=== PATIENT | female | born 1980 | race Caucasian/White ===

== ENCOUNTER → 2017-11-25 09:36 | Outpatient (CLI) | payer OTHER, SELFPAY ==
[2017-11-25 12:31] LABS: AST(SGOT) 11 U/L (15-37); Alanine Aminotransfer ALT/SGPT 20 U/L (13-56); Cholesterol 191 mg/dL (200); High Density Lipoprotein 33 mg/dL; Triglycerides 151 mg/dL; Very Low Density Lipoprotein 30 mg/dL (5-40)
[2017-11-25 13:06] LABS: Pregnancy, Serum, hCG Quali. NEGATIVE Negative (0-9 Nonpreg)
== END ==
PROVIDERS: Family Provider Nurse Practitioner Primary Care; PCP Nurse Practitioner Primary Care; Visit Provider Dermatology
DX: L70.0 Acne vulgaris (principal)
CPT/HCPCS: 36415; 80061; 84450; 84460; 84702; 84703

== ENCOUNTER → 2017-12-28 09:37 | Outpatient (CLI) | payer OTHER, SELFPAY ==
[2017-12-28 10:18] LABS: Internal QC Validated? YES +Cl - CLEAR BKGD; Pregnancy, Urine Negative Negative
== END ==
PROVIDERS: Family Provider Nurse Practitioner Primary Care; PCP Nurse Practitioner Primary Care; Visit Provider Dermatology
DX: Z79.899 Other long term (current) drug therapy (principal)
CPT/HCPCS: 81025

== ENCOUNTER → 2018-02-02 09:29 | Outpatient (CLI) | payer OTHER, SELFPAY ==
[2018-02-02 12:26] LABS: Internal QC Validated? YES +Cl - CLEAR BKGD; Pregnancy, Urine Negative Negative
== END ==
PROVIDERS: Family Provider Nurse Practitioner Primary Care; PCP Nurse Practitioner Primary Care; Visit Provider Dermatology
DX: L70.0 Acne vulgaris (principal); L56.4 Polymorphous light eruption; B00.1 Herpesviral vesicular dermatitis; Z79.899 Other long term (current) drug therapy
CPT/HCPCS: 81025

== ENCOUNTER → 2018-03-08 09:32 | Outpatient (CLI) | payer OTHER, SELFPAY ==
[2018-03-08 11:13] LABS: Internal QC Validated? YES +Cl - CLEAR BKGD; Pregnancy, Urine Negative Negative
== END ==
PROVIDERS: Family Provider Nurse Practitioner Primary Care; PCP Nurse Practitioner Primary Care; Visit Provider Dermatology
DX: L70.0 Acne vulgaris (principal); Z79.899 Other long term (current) drug therapy
CPT/HCPCS: 81025

== ENCOUNTER → 2018-04-05 10:46 | Outpatient (CLI) | payer OTHER, SELFPAY ==
[2018-04-05 12:00] LABS: Internal QC Validated? YES +Cl - CLEAR BKGD; Pregnancy, Urine Negative Negative
== END ==
PROVIDERS: Family Provider Nurse Practitioner Primary Care; PCP Nurse Practitioner Primary Care; Visit Provider Dermatology
DX: L70.0 Acne vulgaris (principal); L23.3 Allergic contact dermatitis due to drugs in contact with skin; Z79.899 Other long term (current) drug therapy
CPT/HCPCS: 81025

== ENCOUNTER → 2018-04-12 08:29 | Outpatient (CLI) | payer OTHER, SELFPAY ==
[2018-04-12 10:38] LABS: Internal QC Validated? YES +Cl - CLEAR BKGD; Pregnancy, Urine Negative Negative
== END ==
PROVIDERS: Family Provider Nurse Practitioner Primary Care; PCP Nurse Practitioner Primary Care; Referring Provider Dermatology; Visit Provider Dermatology
DX: L70.0 Acne vulgaris (principal); L23.3 Allergic contact dermatitis due to drugs in contact with skin; Z79.899 Other long term (current) drug therapy
CPT/HCPCS: 81025

== ENCOUNTER → 2018-05-06 16:52 | Outpatient (CLI) | payer OTHER, SELFPAY ==
[2018-05-06 18:12] LABS: AST(SGOT) 17 U/L (15-37); Alanine Aminotransfer ALT/SGPT 23 U/L (13-56); Cholesterol 195 mg/dL (200); High Density Lipoprotein 28 mg/dL; Triglycerides 326 mg/dL; Very Low Density Lipoprotein 65 mg/dL (5-40)
[2018-05-06 18:14] LABS: hCG Titer Quant., Serum < 1 mIU/mL (<9 non-preg)
== END ==
PROVIDERS: Family Provider Nurse Practitioner Primary Care; PCP Nurse Practitioner Primary Care; Referring Provider Dermatology; Visit Provider Dermatology
DX: L70.0 Acne vulgaris (principal); Z79.899 Other long term (current) drug therapy
CPT/HCPCS: 36415; 80061; 84450; 84460; 84702

== ENCOUNTER → 2018-06-07 11:49 | Outpatient (CLI) | payer OTHER, SELFPAY ==
[2018-06-07 14:27] LABS: Internal QC Validated? YES +Cl - CLEAR BKGD; Pregnancy, Urine Negative Negative
== END ==
PROVIDERS: Family Provider Nurse Practitioner Primary Care; PCP Nurse Practitioner Primary Care; Referring Provider Dermatology; Visit Provider Dermatology
DX: L70.0 Acne vulgaris (principal); L23.3 Allergic contact dermatitis due to drugs in contact with skin; Z79.899 Other long term (current) drug therapy
CPT/HCPCS: 81025

== ENCOUNTER → 2018-07-20 10:48 | Outpatient (CLI) | payer OTHER, SELFPAY ==
[2018-07-20 12:37] LABS: Internal QC Validated? YES +Cl - CLEAR BKGD; Pregnancy, Urine Negative Negative
== END ==
PROVIDERS: Family Provider Nurse Practitioner Primary Care; PCP Nurse Practitioner Primary Care; Referring Provider Dermatology; Visit Provider Dermatology
DX: L70.0 Acne vulgaris (principal); L23.3 Allergic contact dermatitis due to drugs in contact with skin; L30.8 Other specified dermatitis; J34.0 Abscess, furuncle and carbuncle of nose; L72.8 Other follicular cysts of the skin and subcutaneous tissue; Z79.899 Other long term (current) drug therapy
CPT/HCPCS: 81025; 87070; 87077; 87186; 87205

== ENCOUNTER → 2018-08-18 09:01 | Outpatient (CLI) | payer OTHER, SELFPAY ==
[2018-08-18 11:03] LABS: Internal QC Validated? YES +Cl - CLEAR BKGD; Pregnancy, Urine Negative Negative
== END ==
PROVIDERS: Family Provider Nurse Practitioner Primary Care; PCP Nurse Practitioner Primary Care; Referring Provider Dermatology; Visit Provider Dermatology
DX: L70.0 Acne vulgaris (principal); L23.3 Allergic contact dermatitis due to drugs in contact with skin; Z79.899 Other long term (current) drug therapy
CPT/HCPCS: 81025

== ENCOUNTER → 2018-09-15 09:29 | Outpatient (CLI) | payer OTHER, SELFPAY ==
[2018-09-15 10:22] LABS: Internal QC Validated? YES +Cl - CLEAR BKGD; Pregnancy, Urine Negative Negative
== END ==
PROVIDERS: Family Provider Nurse Practitioner Primary Care; PCP Nurse Practitioner Primary Care; Referring Provider Dermatology; Visit Provider Dermatology
DX: L70.0 Acne vulgaris (principal); J34.89 Other specified disorders of nose and nasal sinuses; H01.009 Unspecified blepharitis unspecified eye, unspecified eyelid; L23.3 Allergic contact dermatitis due to drugs in contact with skin; Z79.899 Other long term (current) drug therapy
CPT/HCPCS: 81025

== ENCOUNTER → 2018-10-25 11:28 | Outpatient (CLI) | payer OTHER, SELFPAY ==
[2018-10-25 13:51] LABS: Internal QC Validated? YES +Cl - CLEAR BKGD; Pregnancy, Urine Negative Negative
== END ==
PROVIDERS: Family Provider Nurse Practitioner Primary Care; PCP Nurse Practitioner Primary Care; Referring Provider Dermatology; Visit Provider Dermatology
DX: L70.0 Acne vulgaris (principal); L23.3 Allergic contact dermatitis due to drugs in contact with skin; Z79.899 Other long term (current) drug therapy
CPT/HCPCS: 81025

== ENCOUNTER → 2018-11-30 10:40 | Outpatient (CLI) | payer OTHER, SELFPAY ==
[2018-11-30 12:23] LABS: Internal QC Validated? YES +Cl - CLEAR BKGD
[2018-11-30 12:26] LABS: Pregnancy, Urine Negative Negative
== END ==
PROVIDERS: Family Provider Nurse Practitioner Primary Care; PCP Nurse Practitioner Primary Care; Referring Provider Dermatology; Visit Provider Dermatology
DX: L70.0 Acne vulgaris (principal); L23.3 Allergic contact dermatitis due to drugs in contact with skin; D23.39 Other benign neoplasm of skin of other parts of face; Z79.899 Other long term (current) drug therapy
CPT/HCPCS: 81025

== ENCOUNTER → 2018-12-07 09:05 | Outpatient (CLI) | payer OTHER, SELFPAY ==
[2018-12-07 10:32] LABS: Internal QC Validated? YES +Cl - CLEAR BKGD; Pregnancy, Urine Negative Negative
== END ==
PROVIDERS: Family Provider Nurse Practitioner Primary Care; PCP Nurse Practitioner Primary Care; Referring Provider Dermatology; Visit Provider Dermatology
DX: L70.0 Acne vulgaris (principal); L23.3 Allergic contact dermatitis due to drugs in contact with skin; D23.39 Other benign neoplasm of skin of other parts of face; Z79.899 Other long term (current) drug therapy
CPT/HCPCS: 81025

== ENCOUNTER → 2019-01-03 10:16 | Outpatient (CLI) | payer OTHER, SELFPAY ==
[2019-01-03 12:29] LABS: Internal QC Validated? YES +Cl - CLEAR BKGD; Pregnancy, Urine Negative Negative
== END ==
PROVIDERS: Family Provider Nurse Practitioner Primary Care; PCP Nurse Practitioner Primary Care; Referring Provider Dermatology; Visit Provider Dermatology
DX: L70.0 Acne vulgaris (principal); L23.3 Allergic contact dermatitis due to drugs in contact with skin; D23.39 Other benign neoplasm of skin of other parts of face; Z79.899 Other long term (current) drug therapy
CPT/HCPCS: 81025

== ENCOUNTER → 2019-02-07 08:55 | Outpatient (CLI) | payer OTHER, SELFPAY ==
[2019-02-07 10:45] LABS: Internal QC Validated? YES +Cl - CLEAR BKGD; Pregnancy, Urine Negative Negative
== END ==
PROVIDERS: Family Provider Nurse Practitioner Primary Care; PCP Nurse Practitioner Primary Care; Referring Provider Dermatology; Visit Provider Dermatology
DX: L70.0 Acne vulgaris (principal); L23.3 Allergic contact dermatitis due to drugs in contact with skin; D23.39 Other benign neoplasm of skin of other parts of face; Z79.899 Other long term (current) drug therapy
CPT/HCPCS: 81025

== ENCOUNTER → 2022-04-28 | Outpatient (CLI) | payer OTHER, SELFPAY ==
--- NOTE | 2022-04-28 13:11 | BI_ITS ---
MAMMOGRAPHY - BILATERAL SCREENING REASON FOR EXAM: Female, 41 years old. Routine annual screening examination. PERTINENT HISTORY: Non-contributory. TECHNIQUE: Digital bilateral breast sergio (3D mammographic acquisition) in the CC and MLO projections. 2-D mediolateral oblique (MLO) and craniocaudad (CC) views of both breasts were obtained. CAD: Full Field Digital Mammography with Computer Added Detection was performed. COMPARISON: None. Baseline examination. FINDINGS: Breast Composition: The breasts are heterogeneously dense, which may obscure small masses. There are no dominant masses or suspicious calcifications. Small benign-appearing bilateral axillary lymph nodes. No other significant abnormalities are identified. There has been no significant change since the prior study. BI/SCRN MAMM (CAD)W/SERGIO BILAT IMPRESSION: Stable bilateral screening mammogram. Yearly follow-up mammogram recommended. (A) ASSESSMENT CATEGORY: BIRADS Category 2: Benign. A letter regarding these results will be sent to the patient by the facility within 30 days. Approximately 10% of breast cancers are not detected by mammography. A normal mammogram should not delay biopsy of a clinically suspicious abnormality. [id number] Electronically Signed: Ac Love MD at 13:48 EDT ,
== END | disposition home or self-care (01) ==
PROVIDERS: PCP Nurse Practitioner Primary Care; Visit Provider Obstetrics & Gynecology Gynecology
DX: Z12.31 Encounter for screening mammogram for malignant neoplasm of breast (principal)
CPT/HCPCS: 77063; 77067

== ENCOUNTER → 2022-07-18 | Outpatient (CLI) | payer OTHER, SELFPAY ==
--- NOTE | 2022-07-18 11:05 | RAD_ITS ---
STUDY: X-RAY CHEST REASON FOR EXAM: Female, 41 years old. CHEST PAIN UPPER RESP SYMPTOMS TECHNIQUE: XR Chest 2 Views COMPARISON: None FINDINGS: There is no demonstrated pleural abnormality. Normal size heart. Normal mediastinum and eliza. Normal visualized pulmonary arteries. Normal visualized aortic arch and descending thoracic aorta. Normal visualized thoracic spine. Normal visualized ribs, clavicles, and shoulders. There is no demonstrated abnormality of the visualized soft tissue structures of the upper abdomen. RAD/Chest PA and Lateral IMPRESSION: There are no acute findings. Electronically Signed: Dago Slaughter MD at 17:06 EST ,
[2022-07-18 11:23] LABS: Hematocrit 43.3 % (37-47); Hemoglobin 14.7 g/dL (12.0-15.0); Mean Corp Hgb Conc 33.9 g/dL (32-36); Mean Corpuscular Hgb 30.4 pg (27.0-32.0); Mean Corpuscular Volume 89.5 fL (81-99); Mean Platelet Vol. 9.7 fl (6.2-12.0); Platelet Count 346 K/mm3 (150-450); RBC Distribution Width CV 12.8 % (11.6-14.6); RBC Distribution Width SD 41.8 fl (35.1-43.9); Red Blood Count 4.84 M/mm3 (4.2-5.4); White Blood Count 7.8 K/mm3 (4.4-11.0)
[2022-07-18 11:30] LABS: D-Dimer Quantitative (DVT/PE) 0.45 FEU/ug/m (0.27-0.49)
[2022-07-18 12:11] LABS: ALB/GLOB Ratio 0.9 RATIO (0.9-2.4); AST(SGOT) 18 U/L (15-37); Alanine Aminotransfer ALT/SGPT 30 U/L (13-56); Albumin, Serum 3.6 g/dL (3.2-5.0); Alkaline Phosphatase 84 U/L (45-117); Anion Gap 8 (5-15); BUN 9 mg/dL (7-18); CRP 3.88 mg/L (0.0-3.0); Calcium,Total 8.9 mg/dL (8.5-10.1); Chloride 105 mmol/L (98-107); Creatinine, Serum 0.82 mg/dL (0.55-1.02); EST Glomerular Filtration Rate 82 mL/min (>60); Est Glom Filt Rate - Afr Amer 99 mL/min (>60); Globulin 3.9 g/dL (2.2-4.2); Glucose 117 mg/dL (74-106); Potassium 3.5 mmol/L (3.5-5.1); Protein, Total 7.5 g/dL (6.4-8.2); Sodium Level 138 mmol/L (136-145); T4 Free Direct 0.93 ng/dL (0.76-1.46); Thyroid Stim Hormone (TSH) 1.91 uIU/mL (0.358-3.74)
[2022-07-24 21:42] LABS: B. pertussis IgA < 1.0 index (0.0-0.9); B. pertussis IgG 3.37 index (0.00-0.94); B. pertussis IgM < 1.0 index (0.0-0.9)
== END | disposition home or self-care (01) ==
PROVIDERS: PCP Nurse Practitioner Primary Care; Referring Provider Nurse Practitioner Primary Care; Visit Provider Nurse Practitioner Primary Care
DX: R06.02 Shortness of breath (principal); R05.9 Cough, unspecified; R11.10 Vomiting, unspecified; N92.6 Irregular menstruation, unspecified
CPT/HCPCS: 36415; 71046; 80053; 84439; 84443; 85027; 85379; 86140; 86615

== ENCOUNTER 2023-10-27 22:33 | Emergency (ER) | payer OTHER, SELFPAY ==
[2023-10-27 22:34] VITALS: PULSE 90; RESP 18; TEMP 36.3; O2SAT 94; BMI 38.2
--- NOTE | 2023-10-27 22:39 | ED.RN ---
Unable to obtain bp in triage after multiple attempts.
[2023-10-27 22:48] VITALS: BP 160/89
--- NOTE | 2023-10-27 23:30 | ED.VIS.GI ---
HPI HPI - GI History of Present Illness Chief Complaint: Abd Pain Informant: patient Abdominal Pain/Flank Pain Onset: Yesterday Context: Sudden Onset Timing: Continuous and Waxes and wanes Quality: Cramping Location: Diffuse Worsened by: - (Having a bowel movement and standing) Relieved by: - (Flexion of hips) Nausea/Vomiting/Emesis GI Symptom: Negative for Nausea or Vomiting Diarrhea/Melena/Hematochezia GI Symptom: Negative for Diarrhea, Melena or Hematochezia Associated Symptoms Associated Symptoms: Negative for Dysuria, Frequency or Hematuria LMP: 1 week ago Narrative Narrative: Patient presents with abdominal pain that began yesterday. Patient states it began rather suddenly. Patient states is waxing and waning but constant. Patient describes it as cramping. Patient states it is diffuse across her entire abdomen worse over the lower abdomen. Patient states it gets worse when she has a bowel movement and when she stands up. Patient states it is better when she flexes her hips into her abdomen. Patient denies any nausea or vomiting. Patient denies any diarrhea, melena, or hematochezia. Patient states does have a history of both internal and external hemorrhoids and does have occasional blood in her stools but denies any recently. Patient denies any urinary complaints. Patient states her last menstrual period was 1 week ago. PFSH PFSH Medical History (Updated 10/28/23 @ 03:[address] Sang Ashby DO) External hemorrhoids Internal hemorrhoids Medical History no medical history Home Medications hydrocodone-acetaminophen 5-325mg 5mg-325mg 1 tab PO Q6H PRN PRN Pain 3 days #10 TABLETS 10/28/23 [Rx Last Taken Unknown] Allergy/AdvReac Type Severity Reaction Status Date / Time No Known Allergies Allergy Verified 10/27/23 22:34 Surgical History (Updated 10/27/23 @ 23:[address] Sang Ashby DO) Hx of tubal ligation Social History Smoking Status: Current every day smoker tobacco type: cigarettes ROS ROS ED Constitutional Constitutional ED: Reports chills, subjective and sweats; Denies fever(s) Eyes Eyes: Denies blurry vision or change in vision ENT ENT ED: Denies rhinorrhea or sore throat Cardiovascular Cardiovascular: Denies chest pain or palpitations Respiratory/Chest Respiratory/Chest: Denies cough or dyspnea Gastrointestinal Gastrointestinal: Reports abdominal pain; Denies nausea or vomiting Genitourinary Genitourinary ED: Denies dysuria or hematuria Musculoskeletal Musculoskeletal: Reports back pain; Denies neck pain Integumentary Denies abscess or rash Neurologic Neurologic: Reports headache(s); Denies weakness Allergic/Immunologic Allergic/Immunologic ED: Denies mouth swelling or urticaria EXAM Physical Exam Const Vital Signs: 10/27/23 22:34 10/27/23 22:48 10/28/23 00:00 Temperature 97.4 F L Temperature Source Temporal Pulse Rate 90 80 Respiratory Rate 18 18 Blood Pressure 160/89 H 140/84 H Blood Pressure Mean 112 102 Pulse Ox 94 98 Oxygen Delivery Method Nasal Cannula Room Air 10/28/23 02:00 Temperature Temperature Source Pulse Rate 67 Respiratory Rate 16 Blood Pressure 128/79 H Blood Pressure Mean 95 Pulse Ox 92 Oxygen Delivery Method Room Air Positive well nourished, well developed and obese General Appearance ED: well developed and NAD Nutritional Appearance: obese HEENT Reports moist mucous membranes Neck supple and no JVD Resp normal respiratory effort and clear to auscultation bilaterally Cardio regular rate and regular rhythm GI non-distended Palpation: soft and tender LLQ, RLQ and suprapubic; Negative for guarding or rebound tenderness present Neuro CN's II-XII intact bilaterally, moves all extremities and no sensory deficits noted Sensorium / Orientation: alert Motor Exam: strength 5/5 throughout Psych mental status grossly normal MDM MDM MDM Narrative Medical decision making narrative: Differential diagnosis includes gastroenteritis, urinary tract infection, dysmenorrhea, diverticulitis, ectopic , bowel obstruction, and perforation. CT scan of the abdomen pelvis will be obtained to assess for diverticulitis, bowel obstruction, and perforation. CBC will be obtained to assess for leukocytosis and anemia. Basic metabolic profile will be obtained to assess for electrolyte abnormality and renal function. Urinalysis will be obtained to assess for urinary tract infection and hematuria. Serum hCG will be obtained to assess for . Lab Data Attestation: I reviewed the patient's lab results. Lab results narrative: CBC was reviewed and was within normal limits. Basic metabolic profile was reviewed and was essentially within normal limits. Serum hCG was reviewed and was negative. Urinalysis was reviewed. Leukocyte esterase was 25. There were 10-25 white blood cells and 10-25 epithelial cells. There is 1+ bacteria. Hepatic profile was reviewed and was within normal limits. Labs: Laboratory Results - last 24 hr 10/27/23 10/27/23 22:40 23:50 WBC 10.3 RBC 4.70 Hgb 14.0 Hct 40.7 MCV 86.6 MCH 29.8 MCHC 34.4 RDW Std Deviation 39.9 RDW Coeff of Aysha 12.6 Plt Count 247 MPV 10.1 Immature Gran % (Auto) 0.400 Neut % (Auto) 73.9 H Lymph % (Auto) 19.2 [place] % (Auto) 5.5 Eos % (Auto) 0.4 Baso % (Auto) 0.6 Absolute Neuts (auto) 7.6 Absolute Lymphs (auto) 1.99 Nucleated RBC % 0 Sodium 139 Potassium 3.5 Chloride 108 H Carbon Dioxide 28.0 Anion Gap 3 L BUN 9 Creatinine 0.85 Estim Creat Clear Calc 98.65 Est GFR (MDRD) Af Amer 94 Est GFR (MDRD) Non-Af 78 BUN/Creatinine Ratio 10.6 Glucose 126 H Calcium 9.3 Total Bilirubin 0.40 Direct Bilirubin 0.14 AST 19 ALT 25 Alkaline Phosphatase 61 Total Protein 6.7 Albumin 3.5 Globulin 3.2 Serum , Qual NEGATIVE Urine Color Yellow Urine Clarity Clear Urine pH 5.0 Ur Specific [place] 1.025 Urine Protein Negative Urine Glucose (UA) Normal Urine Ketones 5 H Urine Occult Blood 50 H Urine Nitrite Negative Urine Bilirubin Negative Urine Urobilinogen Normal Ur Leukocyte Esterase 25 H Urine RBC 5-10 SEEN Urine WBC 10-25 SEEN Ur Squamous Epith Cells 10-25 SEEN Urine Bacteria 1+ Urine Mucus 0 SEEN Radiography Diagnostic Testing: CT scan of the abdomen pelvis was obtained. There is no evidence of bowel obstruction or perforation. There is no free air or free fluid. There is a large gallstone in the gallbladder neck with gallbladder distention. There is mild gallbladder wall thickening. There is also a focal fluid collection or cystic lesion in the right vaginal fornix. This was interpreted by the radiologist was also independently reviewed by myself. Treatment and Re-Evaluation :: Patient was given IV fluids, morphine, and Zofran. On reevaluation, patient had no right upper quadrant tenderness. There is no Ribeiro sign noted. However due to the CT findings, liver profile was added on. Patient was advised of her findings. 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 Patient was instructed to avoid fried foods, fatty foods, greasy foods. Patient was instructed to follow-up with her primary care physician in 3 to 5 days as well. Patient understood and was agreeable with the plan. All questions were answered. Discharge Plan Triage Chief Complaint: Abd Pain ED Provider: Sang Ashby Dx/Rx/DC Orders Clinical Impression: Vaginal cyst, Cholelithiasis Instructions: ED Abdominal Pain Unkn Cause Fem, ED Gallstones with Biliary Colic Prescriptions: New hydrocodone-acetaminophen [hydrocodone-acetaminophen] 5-325 mg tablet 1 tab PO Q6H PRN PRN (Reason: Pain) 3 Days Qty: 10 0RF Stand Alone Forms: ED Work / School Excuse Primary Care Provider: Teresa Torres NP Referrals: Teresa Torres NP, [employer] TE[employer]ER-[employer] [Primary Care Provider] - 3-5 Days Disposition Disposition: Home, Self Care
--- NOTE | 2023-10-27 23:40 | CT_ITS ---
INDICATION: Abdominal pain -- IV PO Contrast EXAMINATION: CT ABDOMEN AND PELVIS WITH CONTRAST - CT Abdomen And Pelvis W/ Contrast Injection TECHNIQUE: Helically acquired images were obtained of the abdomen and pelvis following IV contrast. A radiation dose optimization technique was used for this scan. IV Contrast dosage and agent: 100 mL [id number] Oral contrast: Administered. COMPARISON: Chest radiograph July 18, 2022. FINDINGS: LOWER CHEST: Lung bases are clear. No cardiomegaly or pericardial effusion. LIVER: Homogeneous. No focal mass. GALLBLADDER AND BILIARY TREE: Gallbladder is distended with mild wall thickening. Dependent intraluminal 2.0 cm stone. Additional 2.3 cm gallbladder neck stone, coronal image 62. . No intra- or extrahepatic biliary ductal dilation. PANCREAS: No focal cystic or solid mass. SPLEEN: Normal size without focal cystic or solid mass. ADRENAL GLANDS: No nodules. KIDNEYS AND URETERS: Right renal 1.3 cm hypodensity, too small to characterize but compatible with cyst, no specific imaging follow-up required. Normal renal size and position. No hydronephrosis. PERITONEUM: Minimal dependent fluid in the cul-de-sac which is likely physiologic. No other fluid collection. BOWEL: No acute gastric finding. No small bowel distention or focal wall thickening. Normal appendix. No acute colonic finding. LYMPH NODES: No enlarged mesenteric or retroperitoneal lymph nodes. VESSELS: Aortic atherosclerosis without ectasia. URINARY BLADDER: Unremarkable. REPRODUCTIVE ORGANS: Anteverted uterus. Bilateral tubal ligation devices. Grossly symmetric ovaries with small follicles. 1.0 x 2.4 cm focal fluid or cyst along the right vaginal fornix, axial image 104. ABDOMINAL WALL: No discrete abdominal or pelvic wall hernia. BONES: No lytic or blastic abnormality. CT/Abdomen/Pelvis WITH Contrast IMPRESSION: Large gallstone in the gallbladder neck, likely obstructing with gallbladder distention. Mild gallbladder wall thickening concerning for developing cholecystitis. Focal fluid collection or paravaginal cystic lesion at the right vaginal fornix Electronically Signed: Josse Underwood MD at 2:29 EDT ,
[2023-10-28] VITALS: BP 140/84; PULSE 80; RESP 18; O2SAT 98
[2023-10-28] MEDS: Ondansetron 4 MG/2 ML Vial IV
[2023-10-28] MEDS: 0.9% Normal Saline (1000mL) 1,000 ML 1000 ML IV
[2023-10-28] MEDS: Morphine 4 MG/ML Syringe IV
[2023-10-28 00:02] LABS: Mucous, Urine 0 SEEN /hpf (<or=2+)
[2023-10-28 00:05] LABS: Absolute Lymphocyte Count 1.99 X10^3/uL (0.83-4.51); Absolute Neutrophil Count 7.6 X10^3/uL (2.0-7.7); Basophil# 0.06 X10^3/uL; Basophil% 0.6 % (0-1); Eosinophil# 0.04 X10^3/uL; Eosinophils% 0.4 % (0-5); Hematocrit 40.7 % (37-47); Lymphocyte # 1.99 X10^3/ul (0.83-4.51); Lymphocyte % 19.2 % (19-41); Mean Corp Hgb Conc 34.4 g/dL (32-36); Mean Corpuscular Hgb 29.8 pg (27.0-32.0); Mean Corpuscular Volume 86.6 fL (81-99); Mean Platelet Vol. 10.1 fl (6.2-12.0); Monocyte# 0.57 X10^3/uL; Monocyte% 5.5 % (0-10); NRBC Flagged by Analyzer 0 % (0-5); Neutrophil # 7.64 X10^3/uL (2.7-7.7); Neutrophil % 73.9 % (47-70); Platelet Count 247 K/mm3 (150-450); RBC Distribution Width CV 12.6 % (11.6-14.6); RBC Distribution Width SD 39.9 fl (35.1-43.9); White Blood Count 10.3 K/mm3 (4.4-11.0)
[2023-10-28 00:13] LABS: Color, Urine Yellow (Yellow); Glucose, Dipstick Normal (Normal); Ketone-Dipstick 5 mg/dl (Negative); Leukocyte Esterase-Dipstick 25 /ul (Negative); Nitrite-Dipstick Negative (Negative); Occult Blood-Urine 50 /ul (Negative); Protein-Dipstick Negative (Negative); Specific Gravity, Urine 1.025 (1.002-1.030); Urine Bilirubin Dipstick Negative (Negative); Urine Clarity Clear (Clear); Urine Urobilinogen Normal (Normal)
[2023-10-28 00:25] LABS: Anion Gap 3 (5-15); BUN 9 mg/dL (7-18); BUN/Creat Ratio 10.6 RATIO (10-20); Calcium,Total 9.3 mg/dL (8.5-10.1); Chloride 108 mmol/L (98-107); Creatinine, Serum 0.85 mg/dL (0.55-1.02); EST Glomerular Filtration Rate 78 mL/min (>60); Est Glom Filt Rate - Afr Amer 94 mL/min (>60); Estimated Creatinine Clearance 98.65 ml/min; Glucose 126 mg/dL (74-106); Potassium 3.5 mmol/L (3.5-5.1); Sodium Level 139 mmol/L (136-145)
[2023-10-28 00:27] LABS: Internal QC Validated? YES +Cl - CLEAR BKGD; Pregnancy, Serum, hCG Quali. NEGATIVE Negative; Record Kit Lot#, Serum Preg. 718086
[2023-10-28 00:44] LABS: Bacteria 1+ /hpf (None Seen); Red Blood Cells-Urine 5-10 SEEN /hpf (0-5); Squamous Epithelial Cells - UA 10-25 SEEN /hpf (5-10); White Blood Cells 10-25 SEEN /hpf (0-5)
[2023-10-28 02:00] VITALS: BP 128/79; PULSE 67; RESP 16; O2SAT 92
[2023-10-28 03:26] LABS: AST(SGOT) 19 U/L (15-37); Alanine Aminotransfer ALT/SGPT 25 U/L (13-56); Albumin, Serum 3.5 g/dL (3.2-5.0); Alkaline Phosphatase 61 U/L (45-117); Bilirubin, Direct 0.14 mg/dL (0.00-0.30); Globulin 3.2 g/dL (2.2-4.2); Protein, Total 6.7 g/dL (6.4-8.2)
[2023-10-28 03:55] VITALS: BP 128/88; PULSE 69; RESP 14; TEMP 36.4; O2SAT 97
== END 2023-10-28 03:56 | disposition home or self-care (01) ==
PROVIDERS: Emergency Provider Emergency Medicine; PCP Nurse Practitioner Primary Care; Visit Provider Emergency Medicine
DX: K80.20 Calculus of gallbladder without cholecystitis without obstruction (principal); N89.8 Other specified noninflammatory disorders of vagina; E66.9 Obesity, unspecified; F17.210 Nicotine dependence, cigarettes, uncomplicated
CPT/HCPCS: 74177; 80048; 80076; 81001; 84703; 85025; 96361; 96374; 96375; 99282; J7030; Q9967; A4216; J2405

== ENCOUNTER → 2024-02-04 | Outpatient (CLI) | payer OTHER, SELFPAY ==
--- NOTE | 2024-02-04 16:39 | RAD_ITS ---
STUDY: X-RAY - LEFT SHOULDER REASON FOR EXAM: Female, 43 years old. Left shoulder pain TECHNIQUE: 4 view(s) of the shoulder. COMPARISON: None. FINDINGS: Normal glenohumeral articulation. Normal acromioclavicular joint. Normal acromion. Normal humeral head and visualized proximal humerus. The soft tissue structures are unremarkable. Normal visualized pulmonary apex. RAD/Shoulder min 2 Views IMPRESSION: Normal x-ray examination of the shoulder. Electronically Signed: Ac Love MD at 15:17 EDT ,
[2024-02-04 18:36] LABS: AST(SGOT) 19 U/L (15-37); Alanine Aminotransfer ALT/SGPT 28 U/L (13-56); Cholesterol 211 mg/dL (200); High Density Lipoprotein 37 mg/dL; Triglycerides 251 mg/dL; Very Low Density Lipoprotein 50 mg/dL (5-40)
[2024-02-05 12:40] LABS: hCG Titer Quant., Serum < 1 mIU/mL (1-3)
[2024-02-06 04:08] LABS: LDL, Direct 120295 143 mg/dL (0-99)
== END | disposition home or self-care (01) ==
PROVIDERS: PCP Nurse Practitioner Primary Care; Referring Provider Nurse Practitioner Primary Care; Visit Provider Nurse Practitioner Primary Care
DX: M25.512 Pain in left shoulder (principal); L73.2 Hidradenitis suppurativa; F17.200 Nicotine dependence, unspecified, uncomplicated; Z79.899 Other long term (current) drug therapy
CPT/HCPCS: 36415; 73030; 80061; 83721; 84450; 84460; 84702

== ENCOUNTER → 2024-04-04 | Outpatient (CLI) | payer OTHER, SELFPAY ==
[2024-04-04 15:19] LABS: Internal QC Validated? YES +Cl - CLEAR BKGD; Pregnancy, Urine Negative Negative
== END | disposition home or self-care (01) ==
PROVIDERS: PCP Nurse Practitioner Primary Care; Referring Provider Dermatology; Visit Provider Dermatology
DX: Z79.899 Other long term (current) drug therapy (principal)
CPT/HCPCS: 81025

== ENCOUNTER → 2024-05-04 | Outpatient (CLI) | payer OTHER, SELFPAY ==
[2024-05-04 18:31] LABS: hCG Titer Quant., Serum < 1 mIU/mL (1-3)
== END | disposition home or self-care (01) ==
LOC: MTLAB 16:54
PROVIDERS: PCP Nurse Practitioner Primary Care; Referring Provider Dermatology; Visit Provider Dermatology
DX: L73.2 Hidradenitis suppurativa (principal); Z79.899 Other long term (current) drug therapy
CPT/HCPCS: 36415; 84702

== ENCOUNTER → 2024-06-01 | Outpatient (CLI) | payer OTHER, SELFPAY ==
[2024-06-01 08:00] LABS: Hematocrit 41.1 % (37-47); Hemoglobin 14.2 g/dL (12.0-15.0); Mean Corp Hgb Conc 34.5 g/dL (32-36); Mean Corpuscular Hgb 30.1 pg (27.0-32.0); Mean Corpuscular Volume 87.1 fL (81-99); Mean Platelet Vol. 9.8 fl (6.2-12.0); Platelet Count 337 K/mm3 (150-450); RBC Distribution Width CV 12.8 % (11.6-14.6); RBC Distribution Width SD 40.6 fl (35.1-43.9); Red Blood Count 4.72 M/mm3 (4.2-5.4)
[2024-06-01 08:21] LABS: Hemoglobin A1c 5.8 % (3.8-5.6)
[2024-06-01 08:54] LABS: Ferritin 33 ng/mL (8-252); T4 Free Direct 0.85 ng/dL (0.76-1.46)
== END | disposition home or self-care (01) ==
LOC: LAB 07:15
PROVIDERS: PCP Nurse Practitioner Primary Care; Referring Provider Nurse Practitioner Primary Care; Visit Provider Nurse Practitioner Primary Care
DX: R53.83 Other fatigue (principal); R73.01 Impaired fasting glucose
CPT/HCPCS: 36415; 82728; 83036; 84439; 84443; 85027

== ENCOUNTER → 2024-06-01 | Outpatient (CLI) | payer OTHER, SELFPAY ==
--- NOTE | 2024-06-01 07:52 | US_ITS ---
STUDY: ULTRASOUND OF THE FEMALE PELVIS - COMPLETE REASON FOR EXAM: Female, 43 years old. Menorrhagia LMP: May 07, 2024. TECHNIQUE: Transabdominal TECHNICAL QUALITY: Adequate. COMPARISON: None. FINDINGS: The uterus is anteverted and is in a midline position. The uterus measures 10.1 cm x 5.5 cm x 3.7 cm. Normal uterine cervix. The endometrium measures 10 mm in thickness, and is hyperechoic. There is no demonstrated endometrial mass. There is no demonstrated myometrial mass. I.U.D. - The patient does not have an I.U.D. The right ovary is visualized. The right ovary measures 3.4 cm x 3 cm x 2.6 cm. There is a 2.7 cm x 2.6 x 2.4 cm ovarian cyst. There is no visualized right adnexal mass or complex lesion. There is normal arterial and normal venous vascularity. The left ovary is visualized. The left ovary measures 3.8 cm x 2.8 cm x 2.2 cm. A dominant follicle is seen. There is no visualized left adnexal mass or complex lesion. There is normal arterial and normal venous vascularity. There is no fluid in the cul-de-sac. US/Pelvic (Non ) IMPRESSION: 2.7 cm x 2.6 x 2.4 cm right ovarian cyst. Dominant follicle in the left orbit. Electronically Signed: Ac Love MD at 9:40 EST ,
--- NOTE | 2024-06-01 08:24 | BI_ITS ---
MAMMOGRAPHY - BILATERAL SCREENING REASON FOR EXAM: Female, 43 years old. Routine annual screening examination. PERTINENT HISTORY: Non-contributory. TECHNIQUE: Digital bilateral breast sergio (3D mammographic acquisition) in the CC and MLO projections. 2-D mediolateral oblique (MLO) and craniocaudad (CC) views of both breasts were obtained. CAD: Full Field Digital Mammography with Computer Added Detection was performed. COMPARISON: Comparison is made with prior study April 28, 2022. FINDINGS: Breast Composition: The breasts are heterogeneously dense, which may obscure small masses. There are no dominant masses or suspicious calcifications. Stable bilateral fat containing axillary lymph nodes. No other significant abnormalities are identified. There has been no significant change since the prior study. BI/SCRN MAMM (CAD)W/SERGIO BILAT IMPRESSION: Stable bilateral screening mammogram. Yearly follow-up mammogram recommended. (A) ASSESSMENT CATEGORY: BIRADS Category 2: Benign. A letter regarding these results will be sent to the patient by the facility within 30 days. Approximately 10% of breast cancers are not detected by mammography. A normal mammogram should not delay biopsy of a clinically suspicious abnormality. [id number] Electronically Signed: Ac Love MD at 11:28 EST ,
== END | disposition home or self-care (01) ==
LOC: US 07:51
PROVIDERS: PCP Nurse Practitioner Primary Care; Referring Provider Nurse Practitioner Primary Care; Visit Provider Nurse Practitioner Primary Care
DX: N92.0 Excessive and frequent menstruation with regular cycle (principal); Z12.31 Encounter for screening mammogram for malignant neoplasm of breast
CPT/HCPCS: 76856; 77063; 77067

== ENCOUNTER → 2024-06-14 | Outpatient (CLI) | payer OTHER, SELFPAY ==
[2024-06-14 11:21] LABS: hCG Titer Quant., Serum < 1 mIU/mL (1-3)
[2024-06-14 11:22] LABS: AST(SGOT) 22 U/L (15-37); Alanine Aminotransfer ALT/SGPT 27 U/L (13-56); Cholesterol 244 mg/dL (200); High Density Lipoprotein 35 mg/dL; Triglycerides 201 mg/dL; Very Low Density Lipoprotein 40 mg/dL (5-40)
[2024-06-16 04:08] LABS: LDL, Direct 120295 163 mg/dL (0-99)
== END | disposition home or self-care (01) ==
LOC: LAB 10:17
PROVIDERS: PCP Nurse Practitioner Primary Care; Referring Provider Dermatology; Visit Provider Dermatology
DX: Z51.81 Encounter for therapeutic drug level monitoring (principal); Z79.899 Other long term (current) drug therapy
CPT/HCPCS: 36415; 80061; 83721; 84450; 84460; 84702

== ENCOUNTER → 2024-10-17 | Outpatient (CLI) | payer OTHER, SELFPAY ==
[2024-10-17 08:44] LABS: Hematocrit 40.8 % (37-47); Hemoglobin 13.8 g/dL (12.0-15.0); Mean Corp Hgb Conc 33.8 g/dL (32-36); Mean Corpuscular Hgb 29.9 pg (27.0-32.0); Mean Corpuscular Volume 88.3 fL (81-99); Mean Platelet Vol. 10.2 fl (6.2-12.0); Platelet Count 313 K/mm3 (150-450); RBC Distribution Width CV 12.7 % (11.6-14.6); RBC Distribution Width SD 41.1 fl (35.1-43.9); Red Blood Count 4.62 M/mm3 (4.2-5.4); White Blood Count 8.2 K/mm3 (4.4-11.0)
[2024-10-17 09:11] LABS: ALB/GLOB Ratio 1.5 RATIO (0.9-2.4); AST(SGOT) 17 U/L (<=31); Alanine Aminotransfer ALT/SGPT 19 U/L (<=34); Alkaline Phosphatase 77 U/L (35-104); Anion Gap 11 (5-15); BUN 9 mg/dL (4-19); BUN/Creat Ratio 12.4 RATIO (10-20); Calcium,Total 8.8 mg/dL (7.6-11.0); Carbon Dioxide 20.6 mmol/L (21.0-32.0); Chloride 108 mmol/L (98-108); Creatinine, Serum 0.74 mg/dL (0.70-1.20); EST Glomerular Filtration Rate 103 (>60); Globulin 2.7 g/dL (2.2-4.2); Glucose 121 mg/dL (70-99); Potassium 3.8 mmol/L (3.3-5.1); Protein, Total 6.7 g/dL (5.9-8.4); Sodium Level 139 mmol/L (133-145); Total Bilirubin 0.38 mg/dL (0.00-1.30)
[2024-10-18 16:09] LABS: Deamidated Gliadin IgA 3 units (0-19); Deamidated Gliadin IgG 1 units (0-19); Endomysial Antibody IgA Negative (Negative); Immunoglobulin A 189 mg/dL (87-352); t-Transglutaminase IgA <2 U/mL (0-3)
== END | disposition home or self-care (01) ==
LOC: LAB 08:06
PROVIDERS: PCP Nurse Practitioner Primary Care; Referring Provider Nurse Practitioner Primary Care; Visit Provider Nurse Practitioner Primary Care
DX: R19.4 Change in bowel habit (principal)
CPT/HCPCS: 36415; 80053; 82784; 83516; 85027; 86255

== ENCOUNTER → 2025-03-28 | Outpatient (CLI) | payer OTHER, SELFPAY ==
--- NOTE | 2025-03-28 17:47 | US_ITS ---
PROCEDURE: PELVIC W/ TRANSVAGINAL REASON FOR EXAM: ENDO THICKNESS TECHNIQUE: Procedure Code: [id number] Modality: US Procedure: PELVIC W/ TRANSVAGINAL COMPARISON: June 01, 2024. FINDINGS: LMP: March 16, 2025. Measurements: Uterus: 10.8 cm x 5.4 cm x 3.6 cm with a volume of 112 mL Endometrial Thickness: 10 mm. It is hyperechoic. Right Ovary: 3.5 cm x 3.1 cm x 2.5 cm with a volume of 18 mL. Left Ovary: 3.5 cm x 1.9 cm x 2.2 cm with a volume of 9.8 mL. TRANSABDOMINAL: Uterus: Heterogeneous echotexture in keeping with fibroid change although no focal fibroid is seen. Nabothian cyst. Endometrium: Endometrial thickening measuring 10 mm. Right ovary: Dominant follicle measuring 1.8 cm 2.3 cm 2 cm. Left ovary: Normal size and echotexture. Other: No large pelvic mass identified. Transvaginal sonography was performed to better visualize the endometrium. TRANSVAGINAL: Uterus: Anteverted. Heterogeneous echotexture suggestive of fibroid change. Endometrium: The endometrium is thickened measuring 10 mm. Right ovary: Dominant follicle measuring 1.8 cm 2.3 cm 2 cm. Left ovary: Normal size and echotexture. Other adnexal findings: None. Cul-de-sac: No free intraperitoneal fluid identified. Tenderness: No tenderness US/Pelvic w/ Transvaginal IMPRESSION: Heterogeneous appearance of the uterus in keeping with fibroid change. Endometrial thickening measuring 10 mm. Dominant follicle in the right ovary. Reading Location: [place] [id number]
== END | disposition home or self-care (01) ==
LOC: US 17:01
PROVIDERS: PCP Nurse Practitioner Primary Care; Referring Provider Nurse Practitioner Family; Visit Provider Nurse Practitioner Family
DX: N92.6 Irregular menstruation, unspecified (principal)
CPT/HCPCS: 76830; 76856

== ENCOUNTER → 2025-04-17 | Outpatient (CLI) | payer OTHER, SELFPAY ==
--- NOTE | 2025-04-17 15:05 | ECHOD_ITS ---
Reason For Study : Palpitations Procedure This was a 2D Doppler, Color Flow transthoracic echocardiogram. Exam performed in department. Left Ventricle Normal LV size. Left ventricular systolic function is normal. The left ventricular ejection fraction is 55 %. Normal diastology for age. No regional wall motion abnormalities noted. Right Ventricle Normal RV size. Normal systolic function. Atria Normal left atrium. Normal right atrium. Mitral Valve Normal mitral valve. Tricuspid Valve Normal tricuspid valve. Aortic Valve Trisinus/trileaflet aortic valve. Normal aortic valve. Pulmonic Valve Normal pulmonic valve. Great Vessels Normal aortic root. The pulmonary artery is normal size. Inferior vena cava collapse with respiration. Pericardium/Pleural No pericardial effusion. MMode/2D Measurements & Calculations LVIDd: 4.9 cm IVSd: 1.1 cm Ao root diam: 3.4 cm LVIDs: 3.0 cm LVPWd: 1.1 cm FS: 37.9 % LAV(MOD-bp): 40.2 ml LVAd ap4: 25.6 cm2 SV(MOD-sp4): 37.5 ml LAV(MOD-bp) Indexed: 20.0 ml/m2 LVLd ap4: 7.4 cm SI(MOD-sp4): 18.6 ml/m2 LAV(MOD-sp2): 40.6 ml EDV(MOD-sp4): 73.6 ml LAV(MOD-sp4): 38.6 ml EDV(sp4-el): 75.4 ml LVAs ap4: 16.1 cm2 LVLs ap4: 6.0 cm ESV(MOD-sp4): 36.1 ml ESV(sp4-el): 36.7 ml EF(MOD-sp4): 51.0 % EF(sp4-el): 51.3 % SV(sp4-el): 38.6 ml LA A4 area: 15.4 cm2 LA dimension(2D): 3.3 cm RA A4 area: 10.5 cm2 TAPSE: 2.1 cm Time Measurements MV dec time: 0.20 sec Doppler Measurements & Calculations MV E max conner: 88.4 cm/sec Lat Peak E' Conner: 15.0 cm/sec Med Peak E' Conner: 10.6 cm/sec MV A max conner: 82.8 cm/sec E/E' lat: 5.9 E/E' med: 8.3 MV E/A: 1.1 MV V2 max: 94.8 cm/sec MV P1/2t max conner: 95.8 cm/sec Ao V2 max: 127.6 cm/sec MV max P.6 mmHg MV P1/2t: 67.7 msec Ao max P.5 mmHg MV V2 mean: 63.9 cm/sec Ao V2 mean: 85.4 cm/sec MV mean P.9 mmHg MV dec slope: 414.4 cm/sec2 Ao mean P.4 mmHg MV V2 VTI: 23.0 cm MVA(P1/2t): 3.3 cm2 Ao V2 VTI: 24.7 cm AV (velocity ratio): 0.90 LV V1 max: 111.2 cm/sec PA V2 max: 113.6 cm/sec LV V1 max P.9 mmHg LV V1 mean P.7 mmHg LV V1 mean: 78.5 cm/sec LV V1 VTI: 22.3 cm ECHO/Echo Complete Interpretation Summary Normal LV size. Left ventricular systolic function is normal. The left ventricular ejection fraction is 55 %. Structurally normal valves. Ordering Physician: Gm Alexander Referring Physician: Gm Alexander Performed By: Everett Iraheta RCS
== END | disposition home or self-care (01) ==
LOC: CVS 14:59
PROVIDERS: PCP Nurse Practitioner Primary Care; Referring Provider Nurse Practitioner Family; Visit Provider Nurse Practitioner Family
DX: R00.2 Palpitations (principal); R03.0 Elevated blood-pressure reading, without diagnosis of hypertension
CPT/HCPCS: 93306